=== PATIENT | male | born 1980 | race Caucasian/White ===

== ENCOUNTER 2017-04-08 17:56 | Emergency (ER) | payer OTHER ==
[2017-04-08 19:32] LABS: BASOPHIL 0.1 % (0-2); EOSINOPHIL 3.4 % (0-5); HCT 40.9 % (42.0-52.0); HGB 14.6 g/dl (13.2-18.0); LYMPHOCYTE 32.4 % (15-48); MCH 30.2 pg (25.0-31.0); MCHC 35.7 g/dL (32.0-36.0); MCV 84.7 fL (78.0-100.0); MONOCYTE 10.2 % (0-12); MPV 9.7 fL (6.0-9.5); NEUTROPHIL 53.9 % (41-80); PLT 251 K/uL (150-400); RBC 4.83 M/uL (4.70-6.00); RDW 12.7 % (11.5-14.0); WBC 7.3 K/uL (4.0-10.5)
[2017-04-08 19:33] LABS: BILIRUBIN NEGATIVE (NEGATIVE); BLOOD NEGATIVE Ery/uL (NEGATIVE); CLARITY CLEAR (CLEAR); COLOR YELLOW (YELLOW); GLUCOSE (U) NORMAL (NORMAL); KETONE (U) NEGATIVE (NEGATIVE); LEUKOCYTES NEGATIVE Leu/uL (NEGATIVE); NITRITE NEGATIVE (NEGATIVE); PROTEIN NEGATIVE (NEGATIVE); SPECIFIC GRAVITY >=1.030 (1.001-1.030); UROBILINOGEN 0.2 mg/dL (0.2-1.0); pH 5.5 (5.0-9.0)
[2017-04-08 19:52] LABS: ALBUMIN 4.2 g/dL (3.5-5.0); BILIRUBIN - TOTAL 0.3 mg/dL (0.1-1.0); CREATININE 0.9 mg/dL (0.7-1.2); GLOBULIN (CALCULATION) 2.7 g/dL (2.2-4.2); POTASSIUM 3.8 mmol/L (3.5-5.1); TOTAL PROTEIN 6.9 g/dL (6.4-8.3)
== END 2017-04-08 22:49 | disposition home or self-care (01) ==
LOC: FER 17:56
PROVIDERS: Emergency Medicine Emergency Medical Services
DX: K40.90 Unilateral inguinal hernia, without obstruction or gangrene, not specified as recurrent (principal); F17.210 Nicotine dependence, cigarettes, uncomplicated; Z88.0 Allergy status to penicillin; Z98.890 Other specified postprocedural states
CPT/HCPCS: 36415; 80053; 81003; 83605; 83690; 85025; 96372; J0500; J1170; J1885; J2270; J2405; Q9967

== ENCOUNTER 2020-10-31 06:08 | Emergency (ER) | payer OTHER ==
[~2020-10-31 06:08] MED LIST: BACITRACIN15 GM TOP; BACLOFEN 10MG T10 MG PO; FLEXERIL10 MG PO; IBUPROFEN800 MG PO; NORCO 5-325 TA1 EACH PO; PERCOCET 5-3251 EACH PO; ULTRAM50 MG PO
[2020-10-31 06:53] LABS: BASOPHIL 0.1 % (0-2); EOSINOPHIL 0.4 % (0-5); HCT 41.9 % (42.0-52.0); MCH 29.4 pg (25.0-31.0); MCHC 33.4 g/dL (32.0-36.0); MONOCYTE 5.5 % (0-12); MPV 9.4 fL (6.0-9.5); NEUTROPHIL 70.3 % (41-80); NRBC 0; PLT 319 K/uL (150-400); RBC 4.76 M/uL (4.70-6.00); WBC 8.4 K/uL (4.0-10.5)
[2020-10-31 07:19] LABS: ALBUMIN 3.9 g/dL (3.4-5.0); ALKALINE PHOSHATASE 51 U/L (46-116); ALT 26 U/L (16-63); AST 20 U/L (15-37); BILIRUBIN - TOTAL 0.3 mg/dL (0.2-1.0); BUN 15 mg/dL (7-18); BUN/CREAT RATIO (CALC) 18.8 RATIO; CHLORIDE 102 mmol/L (98-107); CO2 (BICARBONATE) 26 mmol/L (21-32); GLOBULIN (CALCULATION) 3.9 g/dL; GLUCOSE 117 mg/dL (74-106); LIPASE 127 U/L (73-393); POTASSIUM 3.5 mmol/L (3.5-5.1); TOTAL PROTEIN 7.8 g/dL (6.4-8.2)
== END 2020-10-31 08:45 | disposition other institution (70) ==
LOC: FER 06:08
PROVIDERS: Emergency Medicine
DX: S22.081A Stable burst fracture of T11-T12 vertebra, initial encounter for closed fracture (principal); R15.9 Full incontinence of feces; R10.9 Unspecified abdominal pain; M79.672 Pain in left foot; M79.671 Pain in right foot; M54.5 Low back pain; G89.29 Other chronic pain; F17.210 Nicotine dependence, cigarettes, uncomplicated; Z98.890 Other specified postprocedural states; Z88.2 Allergy status to sulfonamides; Z88.0 Allergy status to penicillin; Z88.8 Allergy status to other drugs, medicaments and biological substances; Z79.891 Long term (current) use of opiate analgesic; V47.5XXA Car driver injured in collision with fixed or stationary object in traffic accident, initial encounter; Y92.410 Unspecified street and highway as the place of occurrence of the external cause; Z20.822 Contact with and (suspected) exposure to COVID-19
CPT/HCPCS: 36415; 70450; 71260; 72125; 72131; 80053; 83690; 85025; 93005; G0480; J1170; J1885; J2270; J2405; Q9967; U0002